=== PATIENT | female | born 1945 | race Caucasian/White ===

== ENCOUNTER 2020-08-14 07:33 | Observation (INO) | payer MEDICARE, MEDICAID ==
[2020-08-14] VITALS (12 sets, daily range): BP systolic 118–161; BP diastolic 5–78
[~2020-08-14] VITALS: Ht 152.4 cm; Wt 58.5 kg
[2020-08-14] MEDS ORDERED: SODIUM CHLORIDE 0.9% 1,000 ML ONE (08:30)
[2020-08-14] MEDS ORDERED: SODIUM CHLORIDE 0.9% 1,000 ML IV ONE (09:00)
[2020-08-14] MEDS ORDERED: LIDOCAINE/PF 1% 30 ML VIAL ONE (13:16)
[2020-08-14] MEDS ORDERED: HEPARIN SODIUM 1000 UNITS/NS 1,000 ML ONE (13:16)
[2020-08-14] MEDS ORDERED: IOHEXOL 300 MG/ML 150 ML VIAL ONE ×2 (13:16→15:14)
[2020-08-14] MEDS ORDERED: SODIUM BICARBONATE 50 MEQ/50 ML VIAL ONE (13:16)
[2020-08-14] MEDS ORDERED: DiphenhydrAMINE HCL 50 MG/ML VIAL ONE (14:27)
[2020-08-14] MEDS ORDERED: DIAZEPAM 5 MG TABLET PO ONE (14:30)
[2020-08-14] MEDS ORDERED: DiphenhydrAMINE HCL 25 MG CAPSULE PO ONE (15:00)
[2020-08-14] MEDS ORDERED: FentaNYL CITRATE PF 100 MCG/2 ML VIAL ONE (15:14)
[2020-08-14] MEDS ORDERED: MIDAZOLAM HCL 2 MG/2 ML VIAL ONE (15:14)
[2020-08-14] MEDS ORDERED: HEPARIN SODIUM,PORCINE 1,000 UNITS/ML 10 ML VIAL ONE (15:45)
[2020-08-14] MEDS ORDERED: LIDOCAINE 1% 30 ML/SOD BICARB 8.4% 4 ML SQ ONE (16:00)
[2020-08-14] MEDS ORDERED: IOHEXOL 300 MG/ML 150 ML VIAL IARTER ONE (16:00)
[2020-08-14] MEDS ORDERED: HEPARIN SODIUM 1000 UNITS/NS 1,000 ML IARTER ONE (16:00)
[2020-08-14] MEDS ORDERED: INSULIN LISPRO 100 UNITS/ML SQ PRN (18:15)
[2020-08-14] MEDS ORDERED: DEXTROSE 50%-WATER 25 GM/50 ML SYRINGE IVP PRN (18:15)
[2020-08-14] MEDS ORDERED: ACETAMINOPHEN 325 MG TABLET PO PRN (18:15)
[2020-08-14] MEDS: CARVEDILOL 12.5 MG TABLET PO SCH (21:44)
[2020-08-14] MEDS: DOCUSATE SODIUM 100 MG CAPSULE PO SCH (21:44)
[2020-08-14] MEDS: HEPARIN SODIUM,PORCINE 5,000 UNITS/ML VIAL SQ SCH (23:48)
[2020-08-15 00:26] LABS: GLUCOMETER DEV NAME(LOC) 5N.3; GLUCOSE,POINT OF CARE 101 MG/DL (70-110)
[2020-08-15 04:33] VITALS: BP 119/61
[2020-08-15 07:07] VITALS: BP 125/62
[2020-08-15 07:20] LABS: BASOPHILS % (AUTO) 0.5 % (0.0-2.0); EOSINOPHILS % (AUTO) 0.1 % (1.0-6.0); HEMATOCRIT 37.6 % (36-46); HEMOGLOBIN 12.8 g/dL (12.0-16.0); LYMPHOCYTES # (AUTO) 1.4 K/uL (1.0-4.8); LYMPHOCYTES % (AUTO) 26.7 % (22.0-44.0); MEAN CORPUSCULAR HEMOGLOBIN 30.6 pg (26.0-34.0); MEAN CORPUSCULAR HGB CONC 33.9 G/dL (31.0-37.0); MEAN CORPUSCULAR VOLUME 90 fL (80-100); MONOCYTES # (AUTO) 0.3 K/uL (0.1-1.0); MONOCYTES % (AUTO) 5.7 % (2.0-9.0); NEUTROPHILS # (AUTO) 3.6 K/uL (1.8-7.7); PLATELET COUNT (AUTO) 176 K/uL (150-450); RED BLOOD CELL COUNT(AUTO) 4.17 MIL/uL (4.00-5.20)
[2020-08-15 07:56] LABS: ALANINE AMINOTRANSFERASE 18 U/L (12-78); ALBUMIN 3.5 g/dL (3.4-5.0); ALKALINE PHOSPHATASE 73 U/L (46-116); ANION GAP 13 mmol/L (8-16); ASPARTATE AMINOTRANSFERASE 21 U/L (15-37); BILIRUBIN,TOTAL 1.7 mg/dL (0.1-1.0); CALCIUM, TOTAL 8.7 mg/dL (8.8-10.5); CARBON DIOXIDE 25 mmol/L (22-29); CHLORIDE 103 mmol/L (98-107); CREATININE 0.69 mg/dL (0.60-1.30); GLUCOSE,RANDOM 82 mg/dL (70-110); POTASSIUM 3.7 mmol/L (3.5-5.1); SODIUM SERUM 141 mmol/L (136-145); TOTAL PROTEIN, SERUM 6.9 g/dL (6.4-8.2); UREA NITROGEN, BLOOD 13 mg/dL (7-18)
[2020-08-15 08:16] LABS: GLOMERULAR FILTR. RATE CALC > 60 mL/min (>60)
[2020-08-15] MEDS ORDERED: ATORVASTATIN CALCIUM 40 MG TABLET PO SCH (09:00)
[2020-08-15] MEDS ORDERED: FAMOTIDINE 20 MG TABLET PO SCH (09:00)
[2020-08-15] MEDS ORDERED: ASPIRIN 81 MG CHEWABLE TABLET PO SCH (09:00)
[2020-08-15] MEDS: DOCUSATE SODIUM 100 MG CAPSULE PO SCH (09:34)
[2020-08-15] MEDS: HEPARIN SODIUM,PORCINE 5,000 UNITS/ML VIAL SQ SCH (09:34)
[2020-08-15] MEDS: CARVEDILOL 12.5 MG TABLET PO SCH (09:35)
[2020-08-15 10:27] VITALS: BP 137/76
[2020-08-15] MEDS ORDERED: ATOR40TA28 PO (12:53)
[2020-08-15] MEDS ORDERED: ASPI-1450 PO (12:53)
[2020-08-15] MEDS ORDERED: CARV12 PO (12:54)
[2020-08-15 22:33] LABS: GLUCOMETER DEV NAME(LOC) 5S.2B; GLUCOSE,POINT OF CARE 115 MG/DL (70-110)
[2020-08-15 22:33] LABS: GLUCOMETER DEV NAME(LOC) 5S.2B; GLUCOSE,POINT OF CARE 98 MG/DL (70-110)
== END 2020-08-15 13:00 | disposition home or self-care (01) ==
LOC: CATHLAB 07:33 → INTOOBSV 07:34 → 5S 07:34
PROVIDERS: ADMIT Internal Medicine Interventional Cardiology; ATTEND Internal Medicine Interventional Cardiology
DX: I25.119 Atherosclerotic heart disease of native coronary artery with unspecified angina pectoris (principal); I10 Essential (primary) hypertension; E78.5 Hyperlipidemia, unspecified; Z95.1 Presence of aortocoronary bypass graft; Z79.899 Other long term (current) drug therapy
CPT/HCPCS: 36415; 80053; 82962 ×2; 85025; 93005; 93458; 96372; 99219 ×2; C1760; J1644 ×3; J2250; J3010; J3490; J7030; Q9967; G0378; J1200